=== PATIENT | female | born 1950 | race Caucasian/White ===

== ENCOUNTER 2018-04-16 21:15 | Inpatient (IN) | payer MEDICARE, OTHER ==
[2018-04-16] MEDS ORDERED: LABETALOL HCL INJ 20 MG/4 ML DISP.SYRIN IV ONE (21:29)
--- NOTE | 2018-04-16 21:30 | ER Document Report ---
ED NIH Stroke Scale - NIH Stroke Scale When completed:: Before Alteplase *: 1. NIH scale should be completed with appropriate accompanying assessment tools. *: 2. The NIH should reflect what the patient is capable of doing and should not be coached by the clinician. 1a. Level of Consciousness: 0=Alert;keenly responsive -: 1=Drowsy -: 2=Obtunded -: 3=Coma/unresponsive or reflex to noxious stimuli. 1a. Responses: 0 1b. Orientation Questions: a. What month is it? -: b. How old are you? -: 0=Answers both questions correctly. -: 1=Answers one question correctly or patient is intubated or has orotracheal trauma. -: 2=Answers neither question correctly. 1b. Responses: 0 1c. Response to commands: a. Open and close eyes? -: b. Systems Development Manager and release hand? -: Credit is given despite weakness. Demonstration of task is permitted. Substitute command if hands cannot be used. -: 0=Performs both tasks correctly -: 1=Performs one task correctly -: 2=Performs neither task correctly 1c. Responses: 0 2. Gaze: Establish eye contact and instruct patient to "Follow my finger" -: 0=Normal -: 1=Partial gaze palsy. Gaze is abnormal in one or both eyes, but where forced deviation or total gaze paresis is not present. -: 2=Forced deviation or total gaze paresis. 2. Responses: 0 3. Visual Payton: Sees fingers in all four quadrants. -: 0=No visual loss. -: 1=Partial hemianopsia. -: 2=Complete hemianopsia. -: 3=Bilateral hemianopsia (including Cortical blindness) 3. Responses: 0 4. Facial Movement: Instruct patient to: -: a. Show me your teeth -: b. Raise your eyebrows -: c. Close your eyes -: d. Smile -: 0=Normal symmetrical movement -: 1=Minor paralysis (flattened nasolabial fold, asymmetry on smiling). -: 2=Partial paralysis (total or near total paralysis of lower face). -: 3=Complete paralysis of upper and lower face 4. Responses: 0 5. Motor functions (left arm): Alternate sides and extend each arm with palms down (90 degrees if sitting or 45 degrees for supine). -: 0=No drift;limb holds for full 10 seconds. -: 1=Drift; limb holds but drifts down before full 10 seconds, but does not hit bed. -: 2=Some effort against gravity; limb cannot get to or maintain position. -: 3=No effort against gravity; limb falls. -: 4=No movement. -: UN=Amputation, joint fusion, explain in comments. 5. Responses (left arm): 1 5. Motor Functions (right arm): Alternate sides and extend each arm with palms down (90 degrees if sitting or 45 degrees for supine). -: 0=No drift;limb holds for full 10 seconds. -: 1=Drift; limb holds but drifts down before full 10 seconds, but does not hit bed. -: 2=Some effort against gravity; limb cannot get to or maintain position. -: 3=No effort against gravity; limb falls. -: 4=No movement. -: UN=Amputation, joint fusion, explain in comments. 5. Responses (right arm): 0 6. Motor Functions (left leg): With patient lying supine, alternate sides and extend each leg (30 degrees always while supine). -: 0=No drift, leg holds position for full 5 seconds -: 1=Drift; leg falls before full 5 seconds but does not hit bed. -: 2=Some effort against gravity, leg falls to bed but some effort against gravity. -: 3=No effort against gravity, leg falls to bed immediately. -: 4=No movement. -: UN=Amputation, joint fusion; explain in comments. 6. Responses (left leg): 4 6. Motor Functions (right leg): With patient lying supine, alternate sides and extend each leg (30 degrees always while supine). -: 0=No drift, leg holds position for full 5 seconds -: 1=Drift; leg falls before full 5 seconds but does not hit bed. -: 2=Some effort against gravity, leg falls to bed but some effort against gravity. -: 3=No effort against gravity, leg falls to bed immediately. -: 4=No movement. -: UN=Amputation, joint fusion; explain in comments. 6. Responses (right leg): 0 7. Limb Ataxia: With eyes open instruct patient to: -: a. "Touch your finger to your nose". -: b. "Touch your heel to your lopez" -: 0=Absent -: 1=Present in one limb. -: 2=Present in two limbs. -: UN=Amputation or joint fusion; explain in comments. 7. Responses: 0 8. Sensory: Test sensation using pinprick or noxious stimuli. Test as many body parts as possible. -: 0=Normal;no sensory loss -: 1=Mile to moderate sensory loss (patient feels pin prick but is less sharp on affected side). -: 2=Severe or total sensory loss. 8. Responses: 1 9. Best Language: Instruct patient to: -: a. "Describe what you see in this picture." -: b. "Name the items in this picture." -: c. "Read these sentences." -: 0=No aphasia, normal -: 1=Mild to moderate aphasia. -: 2=Severe aphasia -: 3=Mute, global aphasia, no usable speech or auditory comprehension. 9. Responses: 0 10. Articulation, Dysarthia: Instruct patient to: -: "Read these words" or "Repeat these words" -: 0=Normal -: 1=Mild to moderate; patient may slur some words but can be understood without difficulty. -: 2=Severe; patients speech so slurred as to be unintelligible in the absence of dysphasia. -: UN=Intubated or other physical barrier, explain in comments. 10. Responses: 0 11. Extinction or inattention: 0=No abnormality -: 1= Visual, tactile, auditory, spatial, or personal inattention or extinction to bilateral simulation in one or the sensory modalities. -: 2=Profound abdirahman-inattention or abdirahman-inattention to more than one modality; does not recognize own hand. 11. Responses: 0 Total Score: 6
[2018-04-16 21:36] LABS: INTERNATIONAL RATION (INR) 0.99
--- NOTE | 2018-04-16 21:38 | ER Document Report ---
ED Neuro Symptoms/Deficit - General Stated Complaint: LEFT SIDE PAIN Time Seen by Provider: 04/16/18 21:28 Notes: Patient is a 67-year-old female with a past medical history of hypertension who presents with acute onset of left lower extremity and left upper extreme any weakness and a feeling of heaviness. The patient states that she was on a walk feel like she could not move her left leg and that it was "about to explode". She describes as a sensation of heaviness and overall discomfort. Nothing was noted to improve or worsen her symptoms. The patient went to the [facility] where it was noted that she had strokelike symptoms. She was subsequent transported to the emergency department. She denies any history of similar symptoms in the past. She denies any use of anti-coagulation. She is visiting from [place] and has been unable to contact her primary care doctor regarding today's concerns. She denies any head trauma, chest pain, shortness of breath, nausea or vomiting. No difficulty speaking or comprehending. - Related Data Allergies/Adverse Reactions: No Known Allergies Allergy (Unverified 04/16/18 22:06) Past Medical History - General Information source: Patient - Social History Smoking Status: Never Smoker Frequency of alcohol use: None Drug Abuse: None Lives with: Spouse/Significant other Family History: Reviewed & Not Pertinent Review of Systems - Review of Systems Notes: Constitutional: Negative for fever. HENT: Negative for sore throat. Eyes: Negative for visual changes. Cardiovascular: Negative for chest pain. Respiratory: Negative for shortness of breath. Gastrointestinal: Negative for abdominal pain, vomiting or diarrhea. Genitourinary: Negative for dysuria. Musculoskeletal: Negative for back pain. Skin: Negative for rash. Neurological: Positive for left upper and lower extremity weakness and numbness positive for left facial numbness 10 point ROS negative except as marked above and in HPI. Physical Exam - Vital signs Vitals: Pulse Ox 100 04/16/18 21:15 Interpretation: Hypertensive Notes: PHYSICAL EXAMINATION: GENERAL: Well-appearing, well-nourished and in no acute distress. HEAD: Atraumatic, normocephalic. EYES: Pupils equal round and reactive to light, extraocular movements intact, sclera anicteric, conjunctiva are normal. ENT: nares patent, oropharynx clear without exudates. Moist mucous membranes. NECK: Normal range of motion, supple without lymphadenopathy LUNGS: Breath sounds clear to auscultation bilaterally and equal. No wheezes rales or rhonchi. HEART: Regular rate and rhythm without murmurs ABDOMEN: Soft, nontender, normoactive bowel sounds. No guarding, no rebound. No masses appreciated. EXTREMITIES: Normal range of motion, no pitting or edema. No cyanosis. NEUROLOGICAL: Face symmetric. Tongue protrudes midline. Extraocular motions intact. Pupils are 2 mm and equally reactive. Normal speech, gait deferred. The patient has 0 out of 5 both distal and proximal strength in the left lower extremity, 4- out of 5 biceps and triceps of the left upper extremity. She has globally diminished sensation reduction on the left side of the face, left upper extremity and left lower extremity. PSYCH: Normal mood, normal affect. SKIN: Warm, Dry, normal turgor, no rashes or lesions noted. Course - Re-evaluation Re-evalutation: 04/16/18 21:32 Presentation of a 67-year-old female who appears to be having a sided likely NISREEN distributions stroke. The patient has 0 out of 5 both distal and proximal strength in the left lower extremity, 4- out of 5 biceps and triceps of the left upper extremity. She has globally diminished sensation reduction on the left side of the face, left upper extremity and left lower extremity. No neurologic deficits noted on the right with 5 out of 5 distal and proximal both upper and lower. She has no facial droop. No aphasia, dysarthria or facial nerve palsies. No ocular involvement. Patient states that the last time she felt completely normally was approximately 1900 but she noticed while sitting at the EMS station at approximately 2000 is when the symptoms became much more prominent. Patient is awake, alert, oriented. Initial blood pressures are noted to be 187 systolic. Patient will be administered 20 mg of IV labetalol to bring the systolic blood pressure below 185. Patient will go for a stat CT of the head to exclude intracranial bleed or mass. If this is unremarkable will proceed with TPA if patient does not meet any exclusion criteria after laboratory assessment. We will also obtain contrasted studies of the brain circulation and neck to evaluate for any possible proximal occlusion which could be amenable to intervascular intervention and warrant transfer to an alternative facility. 04/16/18 22:20 No proximal occlusion noted on CT of the head or neck to warrant transfer. Patient's reassessments reveals that she continues to have persistent left- sided neurologic deficits. Her blood pressure has normalized without requiring administration of labetalol. Patient does not meet any exclusion criteria for TPA at this time. I have reviewed the risks and benefits of administration of TPA with the family at the bedside. We have reviewed the risks of intracranial bleed and the possible benefits of increased functional independence at 90 days with the use of TPA. Patient has elected to proceed with administration of TPA. Will discuss with the hospitalist for admission. 04/16/18 22: 40 patient's neurologic exam Remains unchanged. I discussed the hospitalist who is excepted for admission. - Vital Signs Vital signs: Temp Pulse Resp BP Pulse Ox 98 F 92 20 133/78 H 98 04/17/18 00:30 04/17/18 02:30 04/17/18 02:31 04/17/18 02:31 04/17/18 02:31 - Laboratory Result Diagrams: 04/16/18 20:50 04/16/18 20:50 Laboratory results interpreted by me: 04/16/18 20:50 Glucose 121 H - Diagnostic Test Radiology reviewed: Image reviewed, Reports reviewed Radiology results interpreted by me: 04/16/18 22:30 CT head: No acute intercranial bleed or mass Critical Care Note - Critical Care Note Total time excluding time spent on procedures (mins): 40 Comments: Critical care time spent obtaining history from patient or surrogate, discussions with consultants, development of treatment plan with patient or surrogate, evaluation of patient's response to treatment, examination of patient , ordering and performing treatments and interventions, ordering and review of laboratory studies, re-evaluation of patient's condition, ordering and review of radiographic studies and review of old charts Discharge - Discharge Clinical Impression: Acute embolic stroke, Left-sided weakness Condition: Fair Disposition: ADMITTED INPATIENT Admitting Provider: Hospitalist Unit Admitted: ICU ED Alteplase Inc/Exc Criteria - Inclusion Criteria: 1: Patient presented to ED within 3 hours of acute ischemic stroke symptom onset ? -: Yes 2: Did baseline CT exclude intracranial hemorrhage and/or other risk factors? -: Yes 3: Is the age of the patient 18 years of age or greater? -: Yes : If any of the above questions are answered "NO" then stop, patient is not a candidate for Alteplase, : If all of the above questions are answered "YES" then continue with Exclusion Criteria. - Exclusion Criteria: 1: Is there evidence of intracranial hemorrhage on baseline CT? -: No 2: Is there suspicion of subarachnoid hemorrhage (even if CT negative)? -: No 3: Is there a history of serious head trauma, recent previous stroke or PA within 3 months? -: No 4: Does the patient have a clinical presentation consistent with PA or post-PA pericarditis? -: No 5: Is there history of intracranial hemorrhage? -: No 6: On repeated measurement is Systolic BP greater than 185mmHg or Diastolic BP greater that 110 mmHg and is aggressive treatment needed to reduce blood pressure to these limits (e.g. constant infusion of an anti-hypertensive)? -: No 7: Did the patient awake with stroke symptoms? -: No 8: Has the patient had a lumbar puncture or an arterial puncture at a non- compressile site within 7 days? -: No 9: With in the last 14 days did the patient have surgery or major trauma? -: No 10: Is the patient or less than 2 weeks? -: No 11: Was there any active bleeding or acute trauma? -: No 12: Does the patient have intracranial neoplasm, arteriovenous malformation or aneurysm? -: No 13: Does the patient have abnormal glucose (less than 50 or greater than 400mg/ dl)? Record glucose in Comment. -: No 14: Patient has rapidly improving symptoms at the time Alteplase is to be Administered. -: No 15: Does the patient have any risks for bleeding, including but not limited to: a.: Current use of Coumadin with PT greater than 15 seconds or INR greater than 1.7. b.: Current use of Pradaxa (Dabigatran). c.: Heparin administereed within the past 48 hours and PTT elevated. d.: Platelet count less than 100,000/mm. e.: Major surgery or serious trauma within 14 days. f.: Gastrointestinal or gynecological urinary bleeding within 14 days. g.: Myocardial Infarction (PA) within 3 months. -: No : If the answer to any of the above questions is "YES" then stop, the patient is not a candidate for Alteplase. : If the answer to all of the above questions is "NO" then the patient may be eligible for the Administration of Alteplase. : If the patient is noted to have seizure activity at onset of Stroke symptoms; Consult Neurologist for further evaluation. - The patient is: -: Included and is eligible to receive Alteplase. *Initiate bed placement at higher level of care* --: Yes Reviewed risks & benefits of thrombolytic therapy: I have reviewed the risks and benefits of thrombolytic therapy with the patient and/or his/her family. Yes -: Excluded and not eligible to receive Alteplase for the above exclusions. -: Excluded and not eligible to receive Alteplase for other reasons (specify in comments): - Diagnosis of TIA: -: Patient presented with transient symptoms that are now resolved and no other neurologic findings are currently present. List symptoms in comments. -: Patient is NOT a candidate for tPA. -: ____(put name in comment) has been consulted for admission and continued evaluation of risk factor assessment.
[2018-04-16 21:40] LABS: ABSOLUTE EOSINOPHILS # (AUTO) 0.1 10^3/uL (0.0-0.6); ABSOLUTE LYMPHOCYTES (AUTO) 1.9 10^3/uL (0.5-4.7); ABSOLUTE MONOCYTES (AUTO) 0.5 10^3/uL (0.1-1.4); ABSOLUTE NEUT (AUTO) 4.5 10^3/uL (1.7-8.2); BASOPHILS % (AUTO) 0.6 % (0-2); EOSINOPHILS % (AUTO) 1.9 % (0-6); HEMATOCRIT 39.7 % (36.0-47.0); HEMOGLOBIN 13.7 g/dL (12.0-15.5); LYMPHOCYTES % (AUTO) 27.4 % (13-45); MEAN CORPUSCULAR HEMOGLOBIN 29.4 pg (27.0-33.4); MEAN CORPUSCULAR HGB CONC 34.6 g/dL (32.0-36.0); MEAN CORPUSCULAR VOLUME 85 fl (80-97); MONOCYTES % (AUTO) 6.5 % (3-13); PLATELET COUNT 182 10^3/uL (150-450); RED BLOOD COUNT 4.68 10^6/uL (3.72-5.28); RED CELL DISTRIBUTION WIDTH 13.1 % (11.5-14.0); SEGMENTED NEUTROPHILS % (AUTO) 63.6 % (42-78); TOTAL CELLS COUNTED % (AUTO) 100 %
--- NOTE | 2018-04-16 21:49 | RADIOLOGY REPORT (SQ) ---
EXAM DESCRIPTION: CT HEAD WITHOUT COMPLETED DATE/TIME: 04/16/2018 9:29 pm REASON FOR STUDY: stroke alert COMPARISON: None. TECHNIQUE: Axial images acquired through the brain without intravenous contrast. Images reviewed wi th bone, brain and subdural windows. Images stored on PACS. All CT scanners at this facility use dose modulation, iterative reconstruction, and/or weight based d osing when appropriate to reduce radiation dose to as low as reasonably achievable (ALARA). [facility]: Dose Right [facility]: CareDose [facility]: Dose Right [facility]: Teradose 4D [facility]: [employer] RADIATION DOSE: CT Rad equipment meets quality standard of care and radiation dose reduction techniq ues were employed. CTDIvol: 53.2 mGy. DLP: 964 mGy-cm. mGy. LIMITATIONS: None. FINDINGS: VENTRICLES: Normal size and contour. CEREBRUM: No mass effect. No hemorrhage. No midline shift. Normal sotelo/white matter differentiatio n. Patchy periventricular white matter hypodensities are probably due to chronic microvascular ische abeba. No evidence for acute territorial infarction. CEREBELLUM: No mass effect. No hemorrhage. No alteration of density. No evidence for acute infarct ion. EXTRAAXIAL SPACES: No fluid collections. ORBITS AND GLOBE: Symmetrical contour of the globes. CALVARIUM: No depressed skull fracture. PARANASAL SINUSES: No air-fluid level. SOFT TISSUES: No hematoma. IMPRESSION: No acute intracranial hemorrhage or acute territorial infarct. Chronic microvascular is chemic changes. If clinical concern persists for acute ischemia, MRI can be obtained for further amaya luation. EVIDENCE OF ACUTE STROKE: NO. COMMENT: Pertinent positive or negative findings of the imaging study reported as a CRITICAL EXAM italia DUVAL MD at21:47 hrs on 04/16/2018. Category of Critical Exam: Stroke alert. Quality ID # 436: Final reports with documentation of one or more dose reduction techniques (e.g., Au tomated exposure control, adjustment of the mA and/or kV according to patient size, use of iterative reconstruction technique) TECHNICAL DOCUMENTATION: JOB ID: [id number] 2010 [employer]- All Rights Reserved Reading location - IP/workstation name: [email or web address]
[2018-04-16 21:50] LABS: ALANINE AMINOTRANSFERASE 18 U/L (9-52); ALBUMIN 4.4 g/dL (3.5-5.0); ALKALINE PHOSPHATASE 54 U/L (38-126); ANION GAP 16 (5-19); ASPARTATE AMINO TRANSFERASE 28 U/L (14-36); BILIRUBIN,DIRECT 0.4 mg/dL (0.0-0.4); BILIRUBIN,TOTAL 1.3 mg/dL (0.2-1.3); BLOOD UREA NITROGEN 12 mg/dL (7-20); CALCIUM 9.5 mg/dL (8.4-10.2); CARBON DIOXIDE 26 mmol/L (22-30); CHLORIDE 98 mmol/L (98-107); CREATINE KINASE 53 U/L (30-135); GLUCOSE 121 mg/dL (75-110); POTASSIUM 3.6 mmol/L (3.6-5.0); SODIUM 139.8 mmol/L (137-145)
[2018-04-16 22:00] LABS: PARTIAL THROMBOPLASTIN TIME 33.7 SEC (23.5-35.8)
[2018-04-16 22:01] LABS: CREATINE KINASE MB 0.78 ng/mL (<4.55)
[2018-04-16 22:02] LABS: TROPONIN I < 0.012 ng/mL
[2018-04-16 22:06] LABS: PROTHROMBIN TIME 13.6 SEC (11.4-15.4)
--- NOTE | 2018-04-16 22:10 | RADIOLOGY REPORT (SQ) ---
EXAM DESCRIPTION: CTA HEAD COMPLETED DATE/TIME: 04/16/2018 9:50 pm REASON FOR STUDY: eval occlusion, acute stroke COMPARISON: Noncontrast CT head 04/16/2018. TECHNIQUE: Post IV contrast scanning, thin section axial imaging through the brain to evaluate the a rterial structures. Source and MIP images are saved and reviewed on PACS. Advanced 3D imaging as volume-rendering, MIPs, SSD performed? yes All CT scanners at this facility use dose modulation, iterative reconstruction, and/or weight based d osing when appropriate to reduce radiation dose to as low as reasonably achievable (ALARA). [facility]: Dose Right [facility]: CareDose [facility]: Dose Right [facility]: Teradose 4D [facility]: [employer] CONTRAST TYPE AND DOSE: contrast/concentration: Isovue 350.00 mg/ml; Total Contrast Delivered: 70.0 ml; Total Saline Delivered: 75.0 ml RENAL FUNCTION: Not obtain due to emergency of the study. LIMITATIONS: None. FINDINGS: [place] OF [place]: The anterior, middle, posterior cerebral arteries are all patent. No ev idence of focal stenosis or aneurysm. POSTERIOR CIRCULATION: The distal vertebral arteries are patent as is the basilar artery. No evidence of focal stenosis or aneurysm. BRAIN: No gross enhancing lesions as visualized. BONES: Intact as visualized. SINUSES: No air-fluid level. IMPRESSION: No CTA evidence of focal stenosis or aneurysm of the [place] of [place]. COMMENT: Pertinent positive or negative findings of the imaging study reported as a CRITICAL EXAM italia DUVAL MD at22:03 hrs on 04/16/2018. Category of Critical Exam: Stroke alert TECHNICAL DOCUMENTATION: JOB ID: [id number] Quality ID # [id number]: Final reports with documentation of one or more dose reduction techniques (e.g., Au tomated exposure control, adjustment of the mA and/or kV according to patient size, use of iterative reconstruction technique) 2010 [employer]- All Rights Reserved Reading location - IP/workstation name: [email or web address]
--- NOTE | 2018-04-16 22:16 | RADIOLOGY REPORT (SQ) ---
EXAM DESCRIPTION: CHEST SINGLE VIEW COMPLETED DATE/TIME: 04/16/2018 9:33 pm REASON FOR STUDY: stroke alert COMPARISON: None. EXAM PARAMETERS: NUMBER OF VIEWS: One view. TECHNIQUE: Single frontal radiographic view of the chest acquired. RADIATION DOSE: NA LIMITATIONS: None. FINDINGS: LUNGS AND PLEURA: Mild atelectasis at the left lung base. No sizable pleural effusion or pneumothorax. MEDIASTINUM AND HILAR STRUCTURES: No masses. Contour normal. HEART AND VASCULAR STRUCTURES: Heart normal in size. Normal vasculature. BONES: No acute findings. HARDWARE: None in the chest. IMPRESSION: Mild left basilar atelectasis. TECHNICAL DOCUMENTATION: JOB ID: [id number] 2010 [employer]- All Rights Reserved Reading location - IP/workstation name: [email or web address]
--- NOTE | 2018-04-16 22:18 | RADIOLOGY REPORT (SQ) ---
EXAM DESCRIPTION: CTA NECK COMPLETED DATE/TIME: 04/16/2018 9:50 pm REASON FOR STUDY: eval occlusion, acute stroke COMPARISON: CT head noncontrast 04/16/2018. CT angiogram head 04/16/2018. TECHNIQUE: Axial dynamic scanning technique with dynamic contrast enhancement through the extra-fixed wing aircraft crew chief nial carotid and vertebral arteries. Multiplanar reconstruction. 3-D MIPS and Volume-rendered imag es acquired at the workstation and saved to PACS. Images are reviewed in soft tissue, bone, lung w indows. All CT scanners at this facility use dose modulation, iterative reconstruction, and/or weight based d osing when appropriate to reduce radiation dose to as low as reasonably achievable (ALARA). [facility]: Dose Right [facility]: CareDose [facility]: Dose Right [facility]: Teradose 4D [facility]: [employer] CONTRAST TYPE AND DOSE: 70 mL Omnipaque 350- low osmolar. RENAL FUNCTION: Not obtained due to emergency of the study. LIMITATIONS: None. FINDINGS: AORTIC ARCH: Normal three-vessel origin. Bilateral subclavian arteries are patent. No d issection. RIGHT CAROTIDS: Patent common, internal and external carotid arteries without suggestion of significa nt stenosis. Scattered plaque. No dissection. RIGHT VERTEBRAL: Patent. No dissection. LEFT CAROTIDS: Patent common, internal and external carotid arteries without suggestion of significan t stenosis. Scattered plaque. No dissection. LEFT VERTEBRAL: Patent. No dissection. OTHER: There is a 7 mm peripherally enhancing nodule at the left thyroid lobe. OTHER: 3-D reconstructions confirm findings. IMPRESSION: 1. No CTA evidence of significant stenosis of the extracranial carotid or vertebral ar teries. 2. 7 mm peripherally enhancing nodule at the left thyroid lobe. This can be better evaluated with de dicated ultrasound. COMMENT: Pertinent positive or negative findings of the imaging study reported as a CRITICAL EXAM italia DUVAL MD at22:03 hrs on 04/16/2018. Category of Critical Exam: Stroke Alert Quality ID #[id number]: Measurements of distal internal carotid diameter were used as the denominator for st enosis measurement. TECHNICAL DOCUMENTATION: JOB ID: [id number] Quality ID # [id number]: Final reports with documentation of one or more dose reduction techniques (e.g., Au tomated exposure control, adjustment of the mA and/or kV according to patient size, use of iterative reconstruction technique) 2010 [employer]- All Rights Reserved Reading location - IP/workstation name: [email or web address]
--- NOTE | 2018-04-16 23:07 | EKG REPORT ---
SEVERITY:- DEFECTIVE ECG - RIGHT AND LEFT ARM LEADS REVERSED, PLEASE REPEAT ECG : Confirmed by: Jessica Moody MD 16-Apr-2018 23:06:42
[2018-04-17] MEDS ORDERED: ALTEPLASE INJ 100 MG VIAL IV ONE (02:38)
--- NOTE | 2018-04-17 03:49 | PDOC CONSULTATION ---
Consultation Consult Date: 04/16/18 Attending physician:: ROBINSON OSMAN Consult reason:: CVA on tPA History of Present Illness Admission Date/PCP: 04/16/18 22:55 Patient complains of: Left sided weakness. History of Present Illness: ESTEVAN MAGALLANES is a 67 year old female to the emergency department secondary to left sided upper and lower extremity weakness. Patient was last known to be normal RN 6 PM as she was at home after which she started having left upper and lower weakness 2 hours prior to presenting to the ER. Upon arrival to ER patient was found to have a systolic blood pressure greater than 180 with residual right upper and lower extremity weakness. Blood pressure did continue to trend downwards without the need for antihypertensive agent. Head CT negative at which point patient was given TPA. Past Medical History Cardiac Medical History: Reports: Hypertension Past Surgical History Past Surgical History: Reports: Orthopedic Surgery - right knee replacement Social History Lives with: Spouse/Significant other Smoking Status: Never Smoker Family History Family History: Reviewed & Not Pertinent Parental Family History Reviewed: Yes Children Family History Reviewed: Yes Sibling(s) Family History Reviewed.: Yes Medication/Allergy Home Medications: Gabapentin 400 mg PO BID 04/16/18 Hydrochlorothiazide 25 mg PO DAILY 04/16/18 Potassium Chloride 20 meq PO DAILY 04/16/18 Allergies/Adverse Reactions: No Known Allergies Allergy (Unverified 04/16/18 22:06) Review of Systems Constitutional: PRESENT: weakness Cardiovascular: ABSENT: chest pain Respiratory: ABSENT: dyspnea Gastrointestinal: ABSENT: abdominal pain Genitourinary: ABSENT: difficulty urinating Neurological: PRESENT: focal weakness, numbness, paresthesias Physical Exam Vital Signs: Temp Pulse Resp BP Pulse Ox 98 F 92 20 133/78 H 98 04/17/18 00:30 04/17/18 02:30 04/17/18 03:30 04/17/18 03:30 04/17/18 03:30 Intake & Output 04/15/18 04/16/18 04/17/18 06:59 06:59 06:59 Output Total 1974 Balance -1974 Weight 71 kg General appearance: PRESENT: no acute distress, well-developed, well-nourished Head exam: PRESENT: atraumatic, normocephalic Eye exam: PRESENT: conjunctiva pink, EOMI, PERRLA. ABSENT: scleral icterus Ear exam: PRESENT: normal external ear exam Mouth exam: PRESENT: moist, tongue midline Neck exam: ABSENT: carotid bruit, JVD, lymphadenopathy, thyromegaly Respiratory exam: PRESENT: clear to auscultation liborio. ABSENT: rales, rhonchi, wheezes Cardiovascular exam: PRESENT: RRR. ABSENT: diastolic murmur, rubs, systolic murmur Pulses: PRESENT: normal dorsalis pedis pul Vascular exam: PRESENT: normal capillary refill GI/Abdominal exam: PRESENT: normal bowel sounds, soft. ABSENT: distended, guarding, mass, organolmegaly, rebound, tenderness Rectal exam: PRESENT: deferred Extremities exam: PRESENT: full ROM. ABSENT: calf tenderness, clubbing, pedal edema Neurological exam: PRESENT: alert, awake, oriented to person, oriented to place , oriented to time, oriented to situation, CN II-XII grossly intact, other - decreased sensation LLE, with weakness in lower>upper extremity 3/5. no pronator shift noted, tongue midline, reflexes intact.. ABSENT: motor sensory deficit Psychiatric exam: PRESENT: appropriate affect, normal mood. ABSENT: homicidal ideation, suicidal ideation Skin exam: PRESENT: dry, intact, warm. ABSENT: cyanosis, rash Results Laboratory Results: 04/16/18 04/16/18 20:50 20:50 WBC 7.0 Hgb 13.7 Sodium 139.8 Potassium 3.6 Creatinine 0.68 Impressions: Chest X-Ray 04/16/18 21:23 IMPRESSION: Mild left basilar atelectasis. Head CT 04/16/18 21:23 IMPRESSION: No acute intracranial hemorrhage or acute territorial infarct. Chronic microvascular ischemic changes. If clinical concern persists for acute ischemia, MRI can be obtained for further evaluation. EVIDENCE OF ACUTE STROKE: NO. Head CTA 04/16/18 21:28 IMPRESSION: No CTA evidence of focal stenosis or aneurysm of the [place]. Neck CTA 04/16/18 21:28 IMPRESSION: 1. No CTA evidence of significant stenosis of the extracranial carotid or vertebral arteries. 2. 7 mm peripherally enhancing nodule at the left thyroid lobe. This can be better evaluated with dedicated ultrasound. Assessment & Plan - Diagnosis (1) Left-sided weakness Is this a current diagnosis for this admission?: Yes (2) Acute embolic stroke Is this a current diagnosis for this admission?: Yes Plan: Head CT negative. Patient status post TPA. CTA head neck appear to be negative at this time. Patient is resting comfortably, alert oriented 3. Left -sided weakness still present. Patient awaiting bed at by did not secondary to no neurology available, to be transferred as soon as bed is assigned and transportation is ready. - Time Time Spent: 30 to 50 Minutes Medications reviewed and adjusted accordingly: Yes Anticipated discharge: [facility]
--- NOTE | 2018-04-17 07:33 | PDOC TRANSFER SUMMARY ---
General Admission Date/PCP: 04/16/18 22:55 - Transfer Diagnosis (1) Left-sided weakness Is this a current diagnosis for this admission?: Yes (2) Acute embolic stroke Is this a current diagnosis for this admission?: Yes - Transfer Medications Home Medications: Gabapentin 400 mg PO BID 04/16/18 Hydrochlorothiazide 25 mg PO DAILY 04/16/18 Potassium Chloride 20 meq PO DAILY 04/16/18 Transfer Medications: Current Medications Pantoprazole Sodium (Protonix Iv Inj 40 Mg Vial) 40 mg IV DAILY BELL Stop: 04/20/18 09:59 Sodium Chloride (Saline Flush 2.5 Ml Monoject Prefil Syrin) 2.5 ml IV Q8 BELL Stop: 05/17/18 05:59 Last Admin: 04/17/18 06:37 Dose: 2.5 ml - Allergies Allergies/Adverse Reactions: No Known Allergies Allergy (Unverified 04/16/18 22:06) Hospital Course Hospital Course: ESTEVAN MAGALLANES is a 67 year old female to the emergency department secondary to left sided upper and lower extremity weakness. Patient was last known to be normal RN 6 PM as she was at home after which she started having left upper and lower weakness 2 hours prior to presenting to the ER. Upon arrival to ER patient was found to have a systolic blood pressure greater than 180 with residual right upper and lower extremity weakness. Blood pressure did continue to trend downwards without the need for antihypertensive agent. Head CT negative at which point patient was given TPA. Physical Exam Vital Signs: Temp Pulse Resp BP Pulse Ox 98.4 F 78 13 164/75 H 99 04/17/18 04:01 04/17/18 06:30 04/17/18 07:01 04/17/18 07:01 04/17/18 07:01 Intake & Output 04/16/18 04/17/18 04/18/18 06:59 06:59 06:59 Output Total 1974 -1974 Weight 71 kg Additional comments: General appearance: PRESENT: no acute distress, well-developed, well-nourished Head exam: PRESENT: atraumatic, normocephalic Eye exam: PRESENT: conjunctiva pink, EOMI, PERRLA. ABSENT: scleral icterus Ear exam: PRESENT: normal external ear exam Mouth exam: PRESENT: moist, tongue midline Neck exam: ABSENT: carotid bruit, JVD, lymphadenopathy, thyromegaly Respiratory exam: PRESENT: clear to auscultation liborio. ABSENT: rales, rhonchi, wheezes Cardiovascular exam: PRESENT: RRR. ABSENT: diastolic murmur, rubs, systolic murmur Pulses: PRESENT: normal dorsalis pedis pul Vascular exam: PRESENT: normal capillary refill GI/Abdominal exam: PRESENT: normal bowel sounds, soft. ABSENT: distended, guarding, mass, organolmegaly, rebound, tenderness Rectal exam: PRESENT: deferred Extremities exam: PRESENT: full ROM. ABSENT: calf tenderness, clubbing, pedal edema Neurological exam: PRESENT: alert, awake, oriented to person, oriented to place , oriented to time, oriented to situation, CN II-XII grossly intact, other - decreased sensation LLE, with weakness in lower>upper extremity 3/5. no pronator shift noted, tongue midline, reflexes intact.. ABSENT: motor sensory deficit Psychiatric exam: PRESENT: appropriate affect, normal mood. ABSENT: homicidal ideation, suicidal ideation Skin exam: PRESENT: dry, intact, warm. ABSENT: cyanosis, rash Results Laboratory Results: 04/17/18 02:55 Troponin I 0.013 Impressions: Chest X-Ray 04/16/18 21:23 IMPRESSION: Mild left basilar atelectasis. Head CT 04/16/18 21:23 IMPRESSION: No acute intracranial hemorrhage or acute territorial infarct. Chronic microvascular ischemic changes. If clinical concern persists for acute ischemia, MRI can be obtained for further evaluation. EVIDENCE OF ACUTE STROKE: NO. Head CTA 04/16/18 21:28 IMPRESSION: No CTA evidence of focal stenosis or aneurysm of the [place]. Neck CTA 04/16/18 21:28 IMPRESSION: 1. No CTA evidence of significant stenosis of the extracranial carotid or vertebral arteries. 2. 7 mm peripherally enhancing nodule at the left thyroid lobe. This can be better evaluated with dedicated ultrasound. Plan Discharge Plan: Patient to be transferred to [facility] for higher level of neurological and post tPA cares. Dr. Fofana has accepted patient for ICU admit. Time Spent: Greater than 30 Minutes
[2018-04-17] MEDS ORDERED: PANTOPRAZOLE SODIUM 40 MG VIAL IV SCH (10:00)
[2018-04-17 10:03] VITALS: BP 164/79
--- NOTE | 2018-04-17 12:40 | EKG REPORT ---
SEVERITY:- ABNORMAL ECG - SINUS RHYTHM SUPRAVENTRICULAR BIGEMINY BORDERLINE LEFT AXIS DEVIATION CONSIDER ANTEROSEPTAL INFARCT : Confirmed by: Richard Shine MD 17-Apr-2018 12:40:10
--- NOTE | 2018-04-17 14:58 | XCELERA REPORT ---
[address] [address] Transthoracic Echocardiogram Report Name: ESTEVAN MAGALLANES Age: 67 yrs Gender: Female : 1950 Patient Status: Inpatient Patient Location: [place] [address]^A Study Date: 04/17/2018 09:27 AM Height: 64 in Weight: 156 lb BSA: 1.8 m2 Procedure: A two-dimensional transthoracic echocardiogram with color flow Doppler was performed. Study Quality: Technically suboptimal. The study was technically difficult with many images being suboptimal in quality. Reason For Study: CVA History: CVA. Ordering Physician: WALE Performed By: Joslyn Shane Interpretation Summary There is no obvious cardiac source of embolus noted on this transthoracic echocardiogram. Follow-up with a ZULMA is suggested if cardiac source is still suspected. The left ventricle is normal in size. There is normal left ventricular wall thickness. LV EF is 60% Left ventricular systolic function is normal. Doppler measurements suggest impaired left ventricular relaxation, which is associated with grade I/IV or mild diastolic dysfunction Probably no defenite wall motion abnormality. The right atrium is normal. The left atrial size is normal. The interatrial septum is intact with no evidence for an atrial septal defect. There is no evidence of mitral valve prolapse. There is no mitral valve stenosis. There is a trace to mild amount of mitral regurgitation The aortic valve is mildly calcified The aortic valve is trileaflet. The aortic valve opens well. There is no aortic valve stenosis No aortic regurgitation is present. There is no tricuspid stenosis. There is a trace amount of tricuspid regurgitation Right ventricular systolic pressure is normal. RVSP is 24 to 30 mm of Hg , with RA mean of 5 to 10. There is no pericardial effusion. There is no obvious cardiac source of embolus noted on this transthoracic echocardiogram. Follow-up with a ZULMA is suggested if cardiac source is still suspected MMode/2D Measurements & Calculations RVDd: 2.3 cm LVIDd: 4.6 cm FS: 35.7 % Ao root diam: 2.7 cm IVSd: 1.0 cm LVIDs: 2.9 cm EDV(Teich): 96.4 ml Ao root area: 5.7 cm2 LVPWd: 0.93 cm ESV(Teich): 33.4 ml LA dimension: 3.5 cm EF(Teich): 65.3 % LVOT diam: 2.0 cm LVOT area: 3.1 cm2 Doppler Measurements & Calculations MV E max dominick: MV P1/2t max dominick: Ao V2 max: LV V1 max P.8 cm/sec 81.7 cm/sec 111.5 cm/sec 2.0 mmHg MV A max dominick: MV P1/2t: 59.7 msec Ao max P.0 mmHg LV V1 max: 80.5 cm/sec MVA(P1/2t): 3.7 cm2 TAWNYA(V,D): 2.0 cm2 71.6 cm/sec MV E/A: 0.72 MV dec slope: 400.9 cm/sec2 MV dec time: 0.23 sec PA V2 max: TR max dominick: MV P1/2t-pr_phl: 73.3 cm/sec 220.5 cm/sec 59.7 msec PA max PG: TR max P.5 mmHg 2.1 mmHg Left Ventricle The left ventricle is normal in size. There is normal left ventricular wall thickness. LV EF is 60%. Left ventricular systolic function is normal. Doppler measurements suggest impaired left ventricular relaxation, which is associated with grade I/IV or mild diastolic dysfunction. Probably no defenite wall motion abnormality. There is no thrombus. There is no ventricular septal defect visualized. Right Ventricle The right ventricle is not well visualized secondary to technical limitations. Atria The right atrium is normal. The left atrial size is normal. The interatrial septum is intact with no evidence for an atrial septal defect. Mitral Valve There is no evidence of mitral valve prolapse. There is no vegetation seen on the mitral valve. There is no mitral valve stenosis. There is a trace to mild amount of mitral regurgitation. Aortic Valve The aortic valve is mildly calcified. The aortic valve is trileaflet. The aortic valve opens well. There is no aortic valvular vegetation. There is no aortic valve stenosis. No aortic regurgitation is present. Tricuspid Valve There is no tricuspid stenosis. Tricuspid regurgitation jet envelope not well defined to measure RV systolic pressure accurately. There is a trace amount of tricuspid regurgitation. Right ventricular systolic pressure is normal. RVSP is 24 to 30 mm of Hg , with RA mean of 5 to 10. Pulmonic Valve There is no pulmonic valvular stenosis. There is no pulmonic valvular regurgitation. Great Vessels The aortic root is not well visualized but is probably normal size. Effusions There is no pericardial effusion. : WALE > Heidy, Jessica
== END 2018-04-17 10:05 | disposition short-term general hospital (02) | DRG 62 ==
LOC: ER 21:15 → EH 22:55
PROVIDERS: ADMIT Family Medicine; ATTEND Family Medicine
DX: I63.40 Cerebral infarction due to embolism of unspecified cerebral artery (principal); G81.94 Hemiplegia, unspecified affecting left nondominant side; I10 Essential (primary) hypertension
CPT/HCPCS: 36415; 70450; 70496; 70498; 71045; 80053; 82550; 82553; 84484; 85025; 85610; 85730; 93005; 93010; 93306; 96365; 99291; J2997; J3490